=== PATIENT | male | born 2000 | race Caucasian/White ===

== ENCOUNTER 2021-07-27 11:48 | Emergency (ER) | payer MEDICAID ==
[~2021-07-27] VITALS: Ht 175.3 cm; Wt 101.0 kg
[~2021-07-27 11:48] MED LIST: IBUP-2029 MT; METH-653 MT
[2021-07-27 15:15] VITALS: BP 134/70
[2021-07-27] MEDS ORDERED: IBUPROFEN 600MG TABLET PO ONE (15:15)
== END 2021-07-27 18:57 | disposition home or self-care (01) ==
LOC: ER 11:48
DX: M54.9 Dorsalgia, unspecified (principal); Z88.6 Allergy status to analgesic agent
CPT/HCPCS: 72128; 72131; 99284